=== PATIENT | female | born 1945 | race Caucasian/White ===

== ENCOUNTER → 2016-09-26 | Outpatient (CLI) | payer MEDICARE, OTHER ==
[~2016-09-26] MED LIST: ASPI-586 PO; BIOT25007 PO; CALC-9 PO; CEPH500C PO; CETI10TA17 PO; FOLI1TAB6 PO; HYDR-3454 PO; HYDR25TA4 PO; METO-333 PO; NIAC500T24 PO; OMEG-109 PO; PRAV40TA2 PO
--- NOTE | 2016-09-26 11:28 | Diagnostic Imaging Report ---
INDICATION: Digital mammogram bilateral screening with tomosynthesis. This study was compared to prior exams of 08/02/14 and 07/27/13. At this time there are no current complaints. Digital mammogram bilateral screening with tomosynthesis. At this time, there are no current complaints. The current study was also evaluated with a Computer Aided Detection (CAD) system. FINDINGS: There are scattered fibroglandular densities in both breasts which could obscure a lesion. When compared to the prior study, there has been no significant change. There is no primary or secondary sign of malignancy noted. The 3D tomographic views also fail to show any sign of malignancy. IMPRESSION: 1. There is no evidence of malignancy. 2. The patient should have her annual bilateral screening mammogram on schedule in September of 2017. ACR BI-RADS Category 1: Negative. Result letter will be mailed to the patient. Note: At least 10% of breast cancer is not imaged by mammography. Dictated by: Dictated on workstation # [id number]
== END ==
LOC: RAD 07:13
PROVIDERS: ATTEND Obstetrics & Gynecology
DX: Z12.31 Encounter for screening mammogram for malignant neoplasm of breast (principal)
CPT/HCPCS: 77067

== ENCOUNTER → 2016-10-08 | Outpatient (CLI) | payer MEDICARE, OTHER ==
--- NOTE | 2016-10-08 09:13 | Diagnostic Imaging Report ---
PROCEDURE: MRI lumbar spine. TECHNIQUE: A multiplanar/multisequence MRI of the lumbar spine was performed without contrast. INDICATION: Lumbar radiculopathy. COMPARISON: None. FINDINGS: Evaluation of the static alignment demonstrates mild dextroscoliotic deformity epicentered at the L1-L2 intervertebral disc space. The AP static alignment is maintained. There is no significant andreia or retrolisthesis. There is no evidence of jumped facets. The vertebral body heights are maintained. There is no evidence of acute fracture. Evaluation of the marrow signal demonstrates mild Modic type I change of the adjacent endplates posteriorly at the L3-L4 level; otherwise, the marrow signal is unremarkable. There are also multilevel degenerative changes consisting of intervertebral disc height loss and anterior and posterior disc bulges. The visualized portions of the distal cord are unremarkable. The conus terminates at approximately the L1 level. No abnormal intrathecal filling defects are seen. The pre and paravertebral soft tissue structures are unremarkable. Axial images demonstrate the following: T12-L1: There is no large disc bulge or focal protrusion. There is no significant spinal canal or neuroforaminal stenosis. L1-L2: There is no large disc bulge or focal protrusion. There is no significant spinal canal or neuroforaminal stenosis. L2-L3: There is slight posterior disc bulge posterolaterally. There is also mild ligamentum flavum laxity and facet arthropathy. As a result, however, there is no significant spinal canal or neuroforaminal stenosis. L3-L4: There is a broad-based posterior disc bulge, eccentric to the left. There is also bilateral ligamentum flavum laxity and facet arthropathy. As a result, there is moderate narrowing of the spinal canal and mild narrowing of the bilateral neuroforamen. L4-L5: There is a broad-based posterior disc bulge and bilateral ligamentum flavum laxity and facet arthropathy. As a result, there is mild narrowing of the spinal canal and bilateral neuroforamen. L5-S1: There is no large disc bulge or focal protrusion. There is bilateral facet arthropathy. There is no significant spinal canal or neuroforaminal stenosis. IMPRESSION: 1. Multilevel degenerative changes of the lumbar spine, greatest at the L3-L4 level as described above. 2. No acute fracture or dislocation in the lumbar spine. Dictated by: Dictated on workstation # [id number]
== END ==
LOC: RAD 07:46
PROVIDERS: ATTEND Orthopaedic Surgery
DX: M51.26 Other intervertebral disc displacement, lumbar region (principal); M47.816 Spondylosis without myelopathy or radiculopathy, lumbar region
CPT/HCPCS: 72148

== ENCOUNTER → 2017-09-27 | Outpatient (CLI) | payer MEDICARE, OTHER ==
--- NOTE | 2017-09-27 09:01 | Diagnostic Imaging Report ---
INDICATION: Routine screening. Comparison is made with prior mammogram from 09/26/2016 and 08/02/2014. 2-D and 3-D bilateral screening mammography was performed with a Computer Aided Detection (CAD) system. FINDINGS: Scattered fibroglandular densities are identified bilaterally. Circumscribed density in the lateral right breast retroareolar region with peripheral constipation is noted suggestive of a small oil cyst. No spiculated mass or malignant-appearing microcalcifications are seen. Benign calcifications are present. The axillae are unremarkable. IMPRESSION: No mammographic features suspicious for malignancy are identified. ACR BI-RADS Category 2: Benign findings. Result letter will be mailed to the patient. Note: At least 10% of breast cancer is not imaged by mammography. Dictated by: Dictated on workstation # [id number]
== END ==
LOC: RAD 07:52
PROVIDERS: ATTEND Obstetrics & Gynecology
DX: Z12.31 Encounter for screening mammogram for malignant neoplasm of breast (principal)
CPT/HCPCS: 77067

== ENCOUNTER → 2018-09-11 | Outpatient (CLI) | payer MEDICARE, OTHER ==
[~2018-09-11] MED LIST changes: -HYDR-3454 PO; +HYDR-3455 PO
[2018-09-11 09:42] LABS: HEMATOCRIT 45 % (35-52); HEMOGLOBIN 14.7 G/DL (11.5-16.0); LYMPHOCYTES % (AUTO) 25 % (12-44); MEAN CORPUSCULAR HEMOGLOBIN 32 PG (25-34); MEAN CORPUSCULAR HGB CONC 33 G/DL (32-36); MEAN CORPUSCULAR VOLUME 97 FL (80-99); MEAN PLATELET VOLUME 10.8 FL (7.4-10.4); NEUTROPHILS % (AUTO) 66 % (42-75); PLATELET COUNT 176 10^3/uL (130-400); WHITE BLOOD COUNT 5.3 10^3/uL (4.3-11.0)
[2018-09-11 09:43] LABS: BASOPHILS # (AUTO) 0.1 10^3/uL (0.0-0.1); BASOPHILS % (AUTO) 2 % (0-10); EOSINOPHILS # (AUTO) 0.1 10^3/uL (0.0-0.3); EOSINOPHILS % (AUTO) 1 % (0-10); LYMPHOCYTES # (AUTO) 1.3 X 10^3 (1.0-4.0); MONOCYTES # (AUTO) 0.3 X 10^3 (0.0-1.0); MONOCYTES % (AUTO) 6 % (0-12); NEUTROPHILS # (AUTO) 3.5 X 10^3 (1.8-7.8)
[2018-09-11 10:06] LABS: ALANINE AMINOTRANSFERASE 16 U/L (0-55); ALBUMIN 4.6 GM/DL (3.2-4.5); ALKALINE PHOSPHATASE 101 U/L (40-136); BILIRUBIN,TOTAL 0.9 MG/DL (0.1-1.0); BUN/CREATININE RATIO 20; CALCIUM 10.1 MG/DL (8.5-10.1); CARBON DIOXIDE 28 MMOL/L (21-32); CHLORIDE 99 MMOL/L (98-107); GFR ESTIMATED > 60; GLUCOSE 102 MG/DL (70-105); SODIUM 141 MMOL/L (135-145)
[2018-09-12 14:58] LABS: CHOLESTEROL 155 MG/DL (< 200); HDL CHOLESTEROL 58 MG/DL (40-60); TRIGLYCERIDES 259 MG/DL (<150); VLDL CHOLESTEROL 52 MG/DL (5-40)
== END ==
LOC: LAB FS 09:23
PROVIDERS: ATTEND Pediatrics
DX: E78.2 Mixed hyperlipidemia (principal); I10 Essential (primary) hypertension
CPT/HCPCS: 36415; 80053; 80061; 85025

== ENCOUNTER → 2018-09-29 | Outpatient (CLI) | payer MEDICARE, OTHER ==
--- NOTE | 2018-09-29 14:13 | Diagnostic Imaging Report ---
INDICATION: Routine screening. COMPARISON: 09/27/2017 and 09/26/2016. TECHNIQUE: 2D and 3D bilateral screening mammography was performed with CAD. FINDINGS: Scattered fibroglandular densities are identified bilaterally. The previously noted circumscribed partially calcified nodule in the retroareolar right breast is stable. No new mass or malignant appearing microcalcifications are seen. The axillae are unremarkable. IMPRESSION: No mammographic features suspicious for malignancy are identified. ACR BI-RADS Category 2: Benign findings. Result letter will be mailed to the patient. Note: At least 10% of breast cancer is not imaged by mammography. Dictated by: Dictated on workstation # [id number]
== END ==
LOC: RAD 10:16
PROVIDERS: ATTEND Obstetrics & Gynecology
DX: Z12.31 Encounter for screening mammogram for malignant neoplasm of breast (principal)
CPT/HCPCS: 77067

== ENCOUNTER → 2020-11-21 | Outpatient (CLI) | payer MEDICARE, OTHER ==
--- NOTE | 2020-11-21 11:34 | Diagnostic Imaging Report ---
INDICATION: Routine screening. Comparison is made with prior mammogram 10/15/2019 and 09/29/2018. 2-D and 3-D bilateral screening mammography was performed with CAD. Scattered fibroglandular densities are identified bilaterally. Benign calcifications on the left again noted. There is no mass or malignant-appearing microcalcifications. Axillae are unremarkable. IMPRESSION: BI-RADS Category 2 No mammographic features suspicious for malignancy are identified. ACR BI-RADS Category 2: Benign findings. Result letter will be mailed to the patient. Note: At least 10% of breast cancer is not imaged by mammography. Dictated by: Dictated on workstation # [id number]
== END ==
LOC: RAD 07:45
PROVIDERS: ATTEND Obstetrics & Gynecology
DX: Z12.31 Encounter for screening mammogram for malignant neoplasm of breast (principal)
CPT/HCPCS: 77063; 77067

== ENCOUNTER 2021-03-22 05:37 | Outpatient (RCR) | payer MEDICARE, OTHER ==
[~2021-03-22] VITALS: Ht 162.6 cm; Wt 80.9 kg
[2021-03-23] MEDS ORDERED: POTA-179 PO (12:29)
[2021-03-23] MEDS ORDERED: ASPI-479 PO (12:38)
[2021-03-23] MEDS ORDERED: CALC-722 PO (12:38)
[2021-03-27] MEDS ORDERED: ACHD5005 PO (11:56)
[2021-03-27] MEDS ORDERED: CEPH500C PO (11:56)
== END 2021-03-27 07:50 | disposition home or self-care (01) ==
LOC: PREOP 05:37 → EDSTATUS 12:30 → PREOP 03-27 07:50
PROVIDERS: ATTEND Podiatrist Foot & Ankle Surgery
DX: Z01.818 Encounter for other preprocedural examination (principal)

== ENCOUNTER → 2021-03-24 | Outpatient (CLI) | payer MEDICARE, OTHER ==
[~2021-03-24] MED LIST changes: +ACHD5005 PO; +ASPI-479 PO; +CALC-722 PO; +POTA-179 PO
== END ==
LOC: LAB FS 10:16
PROVIDERS: ATTEND Podiatrist Foot & Ankle Surgery
DX: Z01.812 Encounter for preprocedural laboratory examination (principal); Z20.822 Contact with and (suspected) exposure to COVID-19
CPT/HCPCS: 87635

== ENCOUNTER 2021-03-27 07:26 | Day surgery (SDC) | payer MEDICARE, OTHER ==
[~2021-03-27] VITALS: Ht 162.5 cm; Wt 80.9 kg
[2021-03-27] VITALS (13 sets, daily range): BP systolic 82–137; BP diastolic 51–70
[~2021-03-27 07:26] MED LIST changes: -ACHD5005 PO
[2021-03-27] MEDS ORDERED: ceFAZolin INJECTION 1,000 MG VIAL IV ONE (07:45)
[2021-03-27] MEDS: LACTATED RINGERS 1,000 ML IV PRN ×2 (07:48→10:55)
[2021-03-27] MEDS ORDERED: BUPIVACAINE 0.5% 30 ML (SENSORCAINE) VIAL ONE (07:55)
[2021-03-27] MEDS ORDERED: MIDAZOLAM 2 MG/2 ML (VERSED) VIAL ONE (08:54)
[2021-03-27] MEDS ORDERED: LIDOCAINE PF 2% 5 ML (XYLOCAINE) VIAL ONE (08:54)
[2021-03-27] MEDS ORDERED: proPOfol 200 MG/20 ML (DIPRIVAN) VIAL IV ONE (08:54)
[2021-03-27] MEDS ORDERED: SEVOFLURANE (ULTANE) 15 ML INHAL SOLN ONE ×2 (08:54→11:40)
[2021-03-27] MEDS ORDERED: fentaNYL INJ 100 MCG/2 ML AMP ONE (08:54)
[2021-03-27] MEDS ORDERED: ONDANSETRON 4 MG/2 ML (SDV) Z0FRAN ONE (08:54)
--- NOTE | 2021-03-27 09:18 | Progress Note-Pre Operative ---
Pre-Operative Progress Note H&P Reviewed The H&P was reviewed, patient examined and no changes noted. Date Seen by Provider: Mar 27, 2021 Time Seen by Provider: 09:17 Date H&P Reviewed: Mar 27, 2021 Time H&P Reviewed: 09:17 Pre-Operative Diagnosis: Hallux Valgus, Hammertoes 2, 3, 4, 5, all left foot JAVIER CHOWDARY DPM Mar 27, 2021 09:18
--- NOTE | 2021-03-27 11:49 | Anesthesia-General Post-Op ---
General Patient Condition Mental Status/LOC: Same as Preop Cardiovascular: Satisfactory Nausea/Vomiting: Absent Respiratory: Satisfactory Pain: Controlled Complications: Absent Post Op Complications Complications None Follow Up Care/Instructions Patient Instructions None needed. Anesthesia/Patient Condition Patient Condition Patient is doing well, no complaints, stable vital signs, no apparent adverse anesthesia problems. No complications reported per nursing. CHRIS REAGAN CRNA Mar 27, 2021 11:49
--- NOTE | 2021-03-27 11:53 | Progress Note-Post Operative ---
Post-Operative Progess Note Surgeon (s)/Package Pick Up (s) Surgeon JAVIER CHOWDARY DPM Package Pick Up: None Pre-Operative Diagnosis Hallux Valgus, Hammertoes 2, 3, 4, 5, all left foot Post-Operative Diagnosis Same Procedure & Operative Findings Date of Procedure 03/27/21 Procedure Performed/Findings Etd-Navid Bunionectomy, Reduction of Hammertoes 2, 3, 4, 5, all left foot Anesthesia Type General Estimated Blood Loss Estimated blood loss (mL): Minimal Specimens/Packing Specimens Removed None JAVIER CHOWDARY DPM Mar 27, 2021 11:53
[2021-03-27] MEDS ORDERED: ACHD5005 PO (11:56)
[2021-03-27] MEDS ORDERED: CEPH500C PO (11:56)
[2021-03-27] MEDS ORDERED: fentaNYL INJ 100 MCG/2 ML AMP IVP ONE (12:00)
[2021-03-27] MEDS ORDERED: ONDANSETRON 4 MG/2 ML (SDV) Z0FRAN IVP PRN (12:00)
[2021-03-27] MEDS ORDERED: LACTATED RINGERS 1,000 ML IV SCH (12:00)
[2021-03-27] MEDS ORDERED: morphine INJ 10 MG/ML 1ML (SYR OR VIAL) IVP ONE (12:00)
[2021-03-27] MEDS ORDERED: HYDROcodone/APAP 5 MG/325 MG (LORTAB) TAB PO PRN (12:00)
--- NOTE | 2021-03-27 12:18 | Diagnostic Imaging Report ---
HISTORY: Postop bunionectomy and hammertoe correction. COMPARISON: None. TECHNIQUE: Two views of the left foot. FINDINGS: There are postsurgical changes from prior osteotomy and bunionectomy of the first metatarsal and first proximal phalanx. Hammertoe correction of the second through fifth toes is noted, with pins through the 2nd through 4th toes. No immediate hardware complication is seen. No unexpected radiopaque foreign bodies are seen. There is soft tissue edema and air about the left foot. There is a plantar calcaneal enthesophyte. IMPRESSION: 1. Expected postoperative changes in the left foot with no acute abnormality seen. Dictated by: Dictated on workstation # [id number]
--- NOTE | 2021-03-27 14:13 | Physical Therapy Ortho Eval ---
PT Orthopedic Evaluation Type of Surgery Prior Level of Function Current Living Status: Alone Locomotion (Upon Admit): Independent Established Durable Medical Eq: Front Wheeled Walker has a knee scooter Subjective Subjective Patient reports 0/10 pain currently. Reports she lives alone, however her sister will be staying with her for the next few weeks Entry Into Home: Stairs With Railing Steps Into Home: 5 Steps Inside Home: 0 Steps Accessories: Railing Present Motor Control Motor Control: Motor Control WNL ROM ROM: WFL, except focal deficit Strength Strength: Gen Weak,No Focal Deficit Transfer SCALE: Activities may be completed with or without assistive devices. 4-Gkywqmfwza-lldvejh completes the activity by him/herself with no assistance from a helper. 5-Set-up or Clean-up Assistance-helper sets up or cleans up; patient completes activity. Franklin assists only prior to or following the activity. 4-Supervision or Touching Assistance-helper provides verbal cues and/or touching/steadying and/or contact guard assistance as patient completes activity. Assistance may be provided throughout the activity or intermittently. 3-Partial/Moderate Assistance-helper does LESS THAN HALF the effort. Franklin lifts, holds or supports trunk or limbs, but provides less than half the effort. 2-Substantial/Maximal Assistance-helper does MORE THAN HALF the effort. Franklin lifts or holds trunk or limbs and provides more than half the effort. 3-Rthezavqb-cwhogd does ALL the effort. Patient does none of the effort to complete the activity. Or, the assistance of 2 or more helpers is required for the patient to complete the activity. If activity was not attempted, code reason: 7-Patient Refused. 9-Not Applicable-not attempted and the patient did not perform the activity before the current illness, exacerbation or injury. 10-Not Attempted due to Environmental Limitations-(lack of equipment, weather restraints, etc.). 88-Not Attempted due to Medical Conditions or Safety Concerns. Transfers (B, C, W/C) (QC): 5 Gait Gait Assistive Device: FWW Right Lower Extremity: Right Weight Bearing Status RLE: Full Weight Bearing Left Lower Extremity: Left Weight Bearing Status LLE: Non Weight Bearing Other Weight Bearing Inst.: Heel contact for transfers and balance, left foot Distance (QC): 5=986-51 ft Distance: 50 Gait Level of Assist: 4 Assessment/Goals Goal Time Frame: 1 Visit Safe Ambulation: Yes Patient ambulates 50 feet with FWW, with NWB on left LE. Reports her right foot is starting to hurt more and reports that she was diagnosed with plantarfasciitis recently. Patient politely refuses stair practice as she and her daughter both report the patient will not be able to go up and down steps standing due to NWB left LE. They both agree that patient will sit down and scoot up the stairs on her bottom. Patient was educated in proper gait pattern for ascending/descending stairs and how to use the FWW with the left handrail ascending that is at the patients stairs. Plan Treatment Plan: Discharge PT/Family Agrees to Plan: Yes Time Time In: 1315 Time Out: 1335 Total Billed Treatment Time: 20 Billed Treatment Time Visit, LUZ MARINA CARLSON PT Mar 27, 2021 14:13
--- NOTE | 2021-03-27 18:42 | OPERATIVE REPORT ---
DATE OF SERVICE: 03/27/2021 SURGEON: Javier Chowdary DPM PREOPERATIVE DIAGNOSES: 1. Hallux abductovalgus metatarsal primus varus, left. 2. Hammer digit syndrome, left second, third, fourth and fifth toes. POSTOPERATIVE DIAGNOSES: 1. Hallux abductovalgus metatarsal primus varus, left. 2. Hammer digit syndrome, left second, third, fourth and fifth toes. PROCEDURE: 1. Modified Ted-Navid bunionectomy, left. 2. Arthrodesis with rejection of hammertoe, left second, third, fourth digits. 4. Arthroplasty, left fifth toe. WOUND CLASS: Clean. ANESTHESIA: General. HEMOSTASIS: Pneumatic thigh tourniquet at 250 mmHg. INDICATIONS: This 75-year-old female presents complaining of a painful bunion and hammertoes of the left lower extremity. The patient has undergone previous surgical intervention on the right lower extremity and is now agreeable to surgical intervention on the left after risks and complications were discussed at length. No guarantees were extended to the patient and she is willing to proceed. DESCRIPTION OF PROCEDURE: The patient was brought back to the operating table, placed in secure supine position. Appropriate timeout was performed. General anesthetic was induced. The left foot was anesthetized utilizing 10 mL of 1:1 mixture of 1% Xylocaine, 0.5% Marcaine injected in a local infusion to the digits as well as a Dey block. The left foot was then prepped and draped in normal sterile manner. The left foot was then elevated, allowed to exsanguinate, after which the tourniquet was inflated to 250 mmHg. Attention was then directed to the dorsal aspect of the left first metatarsophalangeal joint area where a 6 cm longitudinal linear incision was created. The incision was deepened in the same plane with great care to identify and retract all vital neurovascular structures. Only necessary blood vessels were cauterized as encountered. The incision was deepened down to the capsule where a longitudinal capsulotomy was performed. Once the capsular tissue was reflected the hypertrophic medial eminence to the first metatarsal head was resected utilizing a power sagittal saw. The dorsal eminence to the first metatarsal head was also reduced with a power sagittal saw. Next, a blunt dissection was carried out into the first intermetatarsal space where a lateral release was performed to the metatarsophalangeal joint area. The conjoint tendon of the adductor hallucis was identified and incised. A lateral capsulorrhaphy was performed as well as release of the fibular sesamoidal ligament. The hallux was then forcibly adducted releasing any additional fibers holding in its abnormal position. The attention was then directed to the medial aspect of the first metatarsal head where a Chevron-type osteotomy was performed. A power sagittal saw was utilized to create the osteotomy at the surgical neck allowing the capital fragment to trans-laterally and was fixated in its corrected position utilizing a threaded 0.062 K-wire driven from proximal dorsal to plantar distal across the osteotomy with great care not to penetrate the articular cartilage. Excellent bony apposition and fixation was appreciated at this time. The K-wire was cut to the dorsal surface of the first metatarsal level. The head of the first metatarsal was further contoured and smoothed with a power sagittal saw and power bur. Attention was then directed to the proximal phalanx of the left hallux where subperiosteal dissection was carried out. Utilizing a power sagittal saw, a wedge of bone was resected with the base medial and the lateral cortices held intact. The wedge of bone was resected, after which two helicopter pilot instructor holes were created at the dorsal medial aspect of the osteotomy and a 28-gauge monofilament wire was then passed through this helicopter pilot instructor hole securing the osteotomy in a closed position. This reduced the hallux valgus deformity. The wound was flushed with copious amounts of normal saline throughout the procedure and closure was then performed in layers. Deep closure was performed with 3-0 Vicryl, superficial closure with 4-0 Vicryl, skin closure with 4-0 Prolene in a horizontal mattress type stitch. Attention was then directed to the semirigid contractures of the left second, third and fourth digits where the same procedure was performed to each toe. The incision was created from the metatarsophalangeal joint extending to the distal interphalangeal joint of the second, third and fourth rays. The incision was deepened down to the extensor tendon where a Z slide lengthening was performed. The extensor tendon was reflected proximally and the extensor archer released overlying the metatarsophalangeal joint. Dorsal capsulorrhaphy was performed overlying the second, third and fourth metatarsophalangeal joints. This allowed the proximal phalanx to come down into more rectus alignment for the digits. Next, utilizing a power sagittal saw and a power bur, the head of the proximal phalanx was fashioned into a peg and a hole was created at the base of the middle phalanx for the peg-in-hole type arthrodesis. A 0.054 smooth K-wire was driven down the toe of the second, third and fourth digits securing the arthrodesis at the proximal interphalangeal joint area and rectus alignment. The excess K wire at the end of the toes were cut and a protective ball placed over the end of the wires. Good reduction of hammertoe deformity was appreciated to the second, third and fourth digits at this time. The wounds were flushed with copious amounts of normal saline. Closure was performed in layers. Deep closure was performed with 3-0 Vicryl, superficial with 4-0 Vicryl, skin closure with 4-0 Prolene in a horizontal mattress type stitch. Attention was then directed to the dorsal aspect of the left fifth toe where a dorsal contracture was identified with minimal adductovarus contracture. The incision was made from the dorsal aspect of the metatarsophalangeal joint to the distal interphalangeal joint area. The incision was deepened in the same plane with great care to identify and retract all vital neurovascular structures. Only necessary blood vessels were cauterized as encountered. A Z slide lengthening was performed overlying the proximal phalanx and the extensor tendon retracted proximally where the extensor archer was released overlying the metatarsophalangeal joint. Once a dorsal capsulorrhaphy was performed to the metatarsophalangeal joint, the proximal phalanx came down into a more rectus alignment. Attention was then directed to the proximal interphalangeal joint where release of the medial lateral collateral ligaments were performed. This exposed the hypertrophic head of the proximal phalanx, which was resected utilizing a power sagittal saw and further contoured and smoothed with a rongeur. The wound was flushed with copious amounts of normal saline and closure was performed in layers. Deep closure was performed with 3-0 Vicryl, superficial with 4-0 Vicryl, skin closure with 4-0 Prolene in a horizontal mattress type stitch. Postoperative injection consisted of 20 mL 0.5% Marcaine injected a local infusion to the surgical sites followed by a 10 mg dexamethasone into the first intermetatarsal space and the first metatarsophalangeal joint area of the left foot. Tourniquet was released noting appropriate cap refill time to all digits of the left foot. Postoperative dressing consisted of Betadine soaked Adaptic, sterile 4 x 4, sterile Kerlix all secured with a Coban wrap. The patient tolerated the anesthesia and procedure well, was transported from the operating room to the recovery room with vital signs stable and vascular status intact to all digits of the left foot. She is to follow up in my office in 10 days' period of time or sooner if necessary. She was given a prescription for Keflex as well as hydrocodone. Job ID: [id number] DocumentID: [id number] Dictated Date: 03/27/2021 12:07:10 Civil Engineer [employer] Date: 03/27/2021 18:41:47 Dictated By: JAVIER CHOWDARY DPM
== END 2021-03-27 13:45 | disposition home or self-care (01) ==
LOC: SDC 07:26
PROVIDERS: ATTEND Podiatrist Foot & Ankle Surgery
DX: M20.12 Hallux valgus (acquired), left foot (principal); M20.42 Other hammer toe(s) (acquired), left foot; M20.32 Hallux varus (acquired), left foot; I10 Essential (primary) hypertension; E78.5 Hyperlipidemia, unspecified; E66.9 Obesity, unspecified; Z79.82 Long term (current) use of aspirin; Z68.31 Body mass index [BMI] 31.0-31.9, adult; Z79.899 Other long term (current) drug therapy
CPT/HCPCS: 73620; 87081